=== PATIENT | female | born 1960 | race Hispanic/Latino ===

== ENCOUNTER 2016-05-31 09:12 | Day surgery (SDC) | payer MEDICAID ==
[2016-05-31 09:59] VITALS: BMI 18.3
[2016-05-31] MEDS ORDERED: Lactated Ringer's 500 ML IV ONE (11:18)
[2016-05-31] MEDS ORDERED: Propofol 10 mg/ml Inj (20 ML) ONE (11:18)
[2016-05-31 13:17] VITALS: BP 127/89; PULSE 89; RESP 20; TEMP 97.9; O2SAT 96
== END 2016-05-31 13:00 | disposition home or self-care (01) ==
LOC: C.ENDO 09:12
PROVIDERS: ATTEND Internal Medicine Gastroenterology
DX: Z12.11 Encounter for screening for malignant neoplasm of colon (principal); D12.5 Benign neoplasm of sigmoid colon; D12.0 Benign neoplasm of cecum; K57.30 Diverticulosis of large intestine without perforation or abscess without bleeding; K64.1 Second degree hemorrhoids
CPT/HCPCS: 45380; 88305; J2704; J7120